=== PATIENT | female | born 1990 | race Caucasian/White ===

== ENCOUNTER 2021-03-27 19:59 | Emergency (ER) | payer OTHER ==
--- NOTE | 2021-03-27 20:25 | EDM.PDOC ---
ED HPI GENERAL MEDICAL PROBLEM - General Chief Complaint: Abdominal Pain Stated Complaint: ABD PAIN Time Seen by Provider: 03/27/21 20:00 Source of Information: Reports: Patient History Limitations: Reports: No Limitations - History of Present Illness INITIAL COMMENTS - FREE TEXT/NARRATIVE: This patient presents to the emergency department for evaluation of abdominal pain. She states she had a sudden onset of severe abdominal pain approximately 2 hours prior to arrival. She localizes the pain to the center of her abdomen. She states she vomited once since the onset of the pain. She states she had a normal bowel movement this morning and denies diarrhea. She has not had a fever with this. She had been eating and drinking normally up until the time the pain started. She denies other concerns or complaints. ED ROS GENERAL - Review of Systems Review Of Systems: See Below Constitutional: Denies: Fever HEENT: Reports: No Symptoms Respiratory: Reports: No Symptoms Cardiovascular: Reports: No Symptoms GI/Abdominal: Reports: Abdominal Pain, Nausea, Vomiting. Denies: Anorexia, Constipation, Diarrhea Musculoskeletal: Reports: No Symptoms Skin: Reports: No Symptoms Neurological: Reports: No Symptoms ED EXAM, GI/ABD - Physical Exam Exam: See Below Exam Limited By: No Limitations General Appearance: WD/WN, No Apparent Distress Eyes: Bilateral: Normal Appearance Ears: Normal External Exam Nose: Normal Inspection Head: Atraumatic, Normocephalic Neck: Normal Inspection, Full Range of Motion Respiratory/Chest: No Respiratory Distress, Lungs Clear, Normal Breath Sounds, No Accessory Muscle Use Cardiovascular: Regular Rate, Rhythm GI/Abdominal Exam: Normal Bowel Sounds, Soft, No Organomegaly, No Distention, Tender (Tenderness center of abdomen.) Course - Orders/Labs/Meds Orders: Active Orders 24 hr Category Date Time Status Abdomen Pelvis wo Cont [CT] Stat Exams 03/27/21 20:19 Taken - Re-Assessments/Exams Free Text/Narrative Re-Assessment/Exam: This patient presents to the emergency department for evaluation of abdominal pain. Despite having stated she has normal stool output her history and clinical findings are most consistent with constipation. There are no signs at this point for a antione of the need for rectal disimpaction. There are no signs of obstruction or other intra-abdominal catastrophe. She did have some improvement in her pain with Toradol and she will go home with instructions on further medication management of this to include stool softeners, suppository, or enema. She will then follow-up with her primary care provider as needed. Patient was stable at the time of discharge. 03/27/21 21:18 Departure - Departure Time of Disposition: 21:20 Disposition: Home, Self-Care 01 Condition: Good Clinical Impression: Constipation - Discharge Information Forms: ED Department Discharge - My Orders Last 24 Hours: My Active Orders 03/27/21 20:19 Abdomen Pelvis wo Cont [CT] Stat - Assessment/Plan Last 24 Hours: My Active Orders 03/27/21 20:19 Abdomen Pelvis wo Cont [CT] Stat
[2021-03-27] MEDS ORDERED: Ketorolac 60 MG/2 ML SDV IM ONE (21:00)
--- NOTE | 2021-03-28 08:54 | CT ---
Date of Service: 03/27/21 Clinical Data: abdominal pain UNENHANCED ABDOMEN AND PELVIC CT: Multislice acquisition through the abdomen and pelvis without IV or oral contrast was performed. No priors. The lung bases are clear. The heart size is normal. The unenhanced liver appears normal. No focal hepatic lesions. The gallbladder appears normal. No calcified gallstones. The spleen appears normal. The pancreas appears normal. There is a 12 mm nodule medial to the spleen consistent with an accessory spleen. The right and left adrenals appear normal. The right and left kidneys appear normal. No nephrocalcinosis or nephrolithiasis. No hydronephrosis or hydroureter. The bladder is partially fluid filled. It appears normal. The uterus is unremarkable. No evidence of appendicitis. There is a moderate amount of stool noted within the cecum, ascending colon, and transverse colon. There are a few scattered air-fluid levels within the small bowel. No distended loops of small bowel. Enteritis should be considered. No free air. No free fluid. No dilated loops of bowel. No adenopathy. No aortic aneurysm. 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 [id number] MTDD
== END 2021-03-27 21:24 | disposition home or self-care (01) ==
LOC: LB.ED 19:59
DX: K59.00 Constipation, unspecified (principal)
CPT/HCPCS: 74176; 96372; 99284; J1885